=== PATIENT | female | born 1975 | race Caucasian/White ===

== ENCOUNTER 2017-07-29 06:32 | Day surgery (SDC) | payer BC ==
--- NOTE | 2017-07-24 12:35 | HP ---
AMENDED REPORT NOW INCLUDES COSIGNER DESIGNATION - ESIGNED BEFORE ADJUSTMENT PREOPERATIVE HISTORY AND PHYSICAL: DATE OF SURGERY/ADMISSION: 07/29/17 ATTENDING SURGEON: Heidy Singh MD * (DICTATED BY REYNA BOLAÑOS) PROCEDURE: Left small finger fusion, DIP joint. CHIEF COMPLAINT: Pain and stiffness, left small finger, status post mallet finger repair and subsequent infection. HISTORY OF PRESENT ILLNESS: This is a 41-year-old female who had complications following a small finger bony mallet repair. The initial injury occurred on . The patient underwent a bony mallet repair of the left small finger on 04/16/16, after which she developed an infection in the finger. An incision and drainage was performed on 04/30/16. Despite ongoing physical therapy and treatment, the patient has continued to have pain and stiffness in the finger. Recent x-rays have showed the DIP joint to be auto fusing. The PIP joint is preserved. At this point, Dr. Singh is recommending surgical intervention in the form of a left small finger fusion of the DIP joint. The patient has consented to proceed. We will place her on ciprofloxacin postoperatively for 5 days for infection prophylaxis. PAST MEDICAL HISTORY: Significant for varicose veins. PAST SURGICAL HISTORY: 1. Vein stripping 2 times each leg. 2. Oral surgery when the patient was in her 20s. 3. Left small finger bony mallet repair. 4. Incision and drainage left small finger. CURRENT MEDICATIONS: 1. Acyclovir 400 mg p.r.n. during outbreaks. 2. Ibuprofen p.r.n. 3. Diclofenac sodium 75 mg b.i.d. p.r.n. ALLERGIES: 1. ACCUTANE, results unknown. 2. CLOBETASOL causes hives and throat swelling. FAMILY MEDICAL HISTORY: Significant for cancer and heart disease. SOCIAL HISTORY: The patient is employed as a teacher at [employer]. She reports being a former smoker. She quit approximately 15 years ago. Prior to that, she smoked half a pack a day for 3 to 4 years. She denies recreational drug use. She does drink alcohol on occasion. REVIEW OF SYSTEMS: General: Negative for fevers, chills, or night sweats. No known anesthesia problems. HEENT: Positive for current congestion. Negative for headache, lightheadedness, or syncopal episodes. Integumentary: Negative for abrasions, lesions, or open wounds. Cardiothoracic: Negative for chest pain, palpitations, or edema. Negative for hypertension. Pulmonary: Negative for shortness of breath with exertion, chronic cough, COPD. GI: Negative for nausea, vomiting, diarrhea, constipation, or GERD. : Negative for nocturia, urinary frequency, urgency, history of UTIs, and kidney problems. Musculoskeletal: Positive for current complaint. Negative for chronic or intermittent back pain. Neurological: Negative for paresthesias, numbness, history of seizure, stroke, or epilepsy. Endocrine: Negative for diabetes or thyroid issues. Hematologic: Negative for easy bruising, anemia, excessive bleeding, or history of DVT. Infectious Disease: Negative for history of MRSA, hepatitis C, or HIV. PHYSICAL EXAMINATION GENERAL: Well-developed, well-nourished 41-year-old female in no acute distress. VITAL SIGNS: Height 5 feet 6 inches, weight 141 pounds. Pulse rate 74, blood pressure 124/76. HEENT: Normocephalic, atraumatic. Pupils are equal, round, and reactive to light and accommodation. Extraocular movements are intact. Throat is clear. NECK: Supple. No palpable lymph nodes. PULMONARY: Lungs are clear to auscultation bilaterally. No wheezes, rales, or rhonchi. CARDIOTHORACIC: Regular rate and rhythm. S1, S2. No murmurs, rubs, or gallops. No edema. ABDOMEN: Positive bowel sounds, soft, nontender. MUSCULOSKELETAL: On exam of her left small finger, there is atrophy of the finger and it is sensitive to palpation. She has stiffness and pain at both the DIP and the PIP joints. DIP joint motion is very limited. PIP joint is approximately 30 degrees flexion and extension. There is a deformity at the DIP joint, curving it towards the ring finger. IMAGING STUDIES: X-rays, left small finger show degenerative changes of the PIP and DIP joints. 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 PLAN: The patient is scheduled to undergo a left small finger fusion at the DIP joint with Dr. Singh on 07/29/17. She will return to the office approximately 3 days following surgery for her first postoperative visit. Prescriptions for oxycodone, ciprofloxacin and Toradol were e-scribed to the patient's pharmacy for postoperative pain management and infection prophylaxis. REYNA BOLAÑOS [id number]/[facility] #: [id number] BORIS
[~2017-07-29 06:32] MED LIST: Buffered Lidocaine 0.9% SYRIN* 5 ML/SYR SYRINGE INTRADERM ONE
[2017-07-29] MEDS ORDERED: ceFAZolin 2 GM PREMIX (*) 2 GM/50 ML BAG IVPB ONE (06:37)
[2017-07-29] MEDS ORDERED: Lidocaine 1% INJ* 10 MG/ML 30 ML SDV ONE (07:32)
[2017-07-29] MEDS ORDERED: Midazolam* 1 MG/ML 2 ML VIAL (2 MG) ONE ×2 (07:33→07:53)
[2017-07-29] MEDS ORDERED: fentaNYL* 50 MCG/ML 2 ML VIAL (100 MCG VIAL) ONE ×2 (07:33→08:24)
[2017-07-29] MEDS ORDERED: Famotidine IV* 10 MG/ML 2 ML (20 mg) ONE (07:43)
[2017-07-29] MEDS ORDERED: Bupivacaine 0.5% SDV PF* 30 ML VIAL ONE (07:58)
[2017-07-29] MEDS ORDERED: Lidocaine 2% PF * 5 ML VIAL ONE (07:59)
[2017-07-29] MEDS ORDERED: Propofol* 10 MG/ML 20 ML BTL IV PUSH ONE (07:59)
[2017-07-29] MEDS ORDERED: Dexamethasone IV* 4 MG/ML 1 ML (4 MG) ONE (07:59)
[2017-07-29] MEDS ORDERED: Ketorolac INJ* 30 MG/ML 1 ML VIAL ONE (07:59)
[2017-07-29] MEDS ORDERED: diPHENhydraMINE IV* 50 MG/ML 1 ml VIAL (BENADRYL) ONE (07:59)
[2017-07-29] MEDS ORDERED: Acetaminophen TAB* 325 MG PO PRN (08:19)
[2017-07-29] MEDS ORDERED: Ondansetron INJ* 2 MG/ML VIAL IV PRN (08:19)
[2017-07-29] MEDS ORDERED: PROCHLORPERAZINE INJ 5 MG/ML 2 ML VIAL IV PRN (08:19)
[2017-07-29] MEDS ORDERED: DiMENhydriNATE IV* 50 MG/ML VIAL IV PUSH PRN (08:19)
[2017-07-29] MEDS ORDERED: HYDROcodone/ACETAMIN 5-325 MG* 1 TAB PO PRN (08:19)
[2017-07-29] MEDS ORDERED: fentaNYL* 50 MCG/ML 2 ML VIAL (100 MCG VIAL) IV PRN (08:19)
[2017-07-29 09:19] VITALS: BP 125/75
--- NOTE | 2017-07-29 15:06 | RAD ---
INDICATION: Left fifth digit percutaneous pinning COMPARISON: June 18, 2017 FINDINGS: 48 seconds of fluoroscopy were provided for the orthopedics department. Fluoroscopic spot imaging of the left fifth digit were obtained for operative control. CPT II Codes: 6045F (fluoro time doc)
--- NOTE | 2017-07-30 21:05 | OP ---
DATE OF OPERATION: 07/29/17 [facility] DATE OF : 75 SURGEON: Heidy Singh MD DEHYDROGENATION CONVERTER OPERATOR: REYNA Morse ANESTHESIOLOGIST: Dr. Mancilla ANESTHESIA: Local MAC. PRE-OP DIAGNOSIS: Status post mallet finger repair of the left small finger with distal interphalangeal joint arthritis. POST-OP DIAGNOSIS: Status post mallet finger repair of the left small finger with distal interphalangeal joint arthritis. OPERATIVE PROCEDURE: Left little finger distal interphalangeal joint fusion. INDICATIONS: Michelle is a 41-year-old woman who suffered a mallet finger of her left small finger; this was repaired surgically, but she developed a postoperative infection and then subsequently has developed significant arthritis of the DIP joint. She presents for DIP fusion. ESTIMATED BLOOD LOSS: Zero. TOURNIQUET TIME: About 30 minutes. DESCRIPTION OF PROCEDURE: The patient was brought to the operating room, was given a sedation anesthetic and a digital block with 10 cc of 1% plain lidocaine. The skin of her left hand and forearm was prepped and draped in usual sterile fashion. The hand and forearm were exsanguinated and the tourniquet elevated to 250 mmHg. An H-shaped incision was made centered over the DIP joint of the little finger. The DIP joint was debrided of osteophytes and any remaining articular surface and then a guidewire from the Micro Acutrak set was driven down the center of the middle phalanx and then the center of the distal phalanx. The guidewire was then placed across the joint, and its position was checked on the C-arm in the AP and lateral views and found to be satisfactory. We measured for an 18-mm Micro Acutrak screw and drilled the distal cortex of the distal phalanx. The screw was then placed across the joint , its position was checked on the C-arm in the AP and lateral views and found to be well positioned. The wound was irrigated and the skin edges were reapproximated with 4-0 nylon suture. The wound was dressed with Xeroform, 4x4 , Webril, and an Hipolito wrap. The patient tolerated the procedure well and was brought to the recovery room in good condition. [id number]/[facility] #: [id number] [facility]
== END 2017-07-29 09:35 | disposition home or self-care (01) ==
LOC: OREAST 06:32
PROVIDERS: ATTEND Orthopaedic Surgery
DX: M15.1 Heberden's nodes (with arthropathy) (principal); Z87.891 Personal history of nicotine dependence
CPT/HCPCS: 76000; 81025; C1713; C1776; J0690; J1100; J1200; J1885; J2250; J2704; J3010

== ENCOUNTER → 2019-05-06 11:17 | Day surgery (SDC) | payer BC ==
[~2019-05-06 11:17] MED LIST changes: -Buffered Lidocaine 0.9% SYRIN* 5 ML/SYR SYRINGE INTRADERM ONE; +Flumazenil* 0.1 MG/ML 5 ML MDV ONE; +Heparin 2 UNITS/ML IVPREMIX* 2,000 ML IV ONE; +Iohexol 350 (CONTRAST) 200 ML MDV IV ONE; +Ketorolac INJ* 30 MG/ML 1 ML VIAL ONE; +LORazepam TAB(*) 1 MG ONE; +Lidocaine 1% INJ* 10 MG/ML 30 ML SDV ONE; +Midazolam* 1 MG/ML 5 ML VIAL (5 MG) ONE; +Naloxone* 0.4 MG/ML 1 ML VIAL ONE; +Ondansetron INJ* 2 MG/ML VIAL IV ONE; +Ondansetron INJ* 2 MG/ML VIAL ONE; +Polidocanol 1% 20 MG/2 ML AMP IV ONE; +fentaNYL* 50 MCG/ML 5 ML VIAL (250 MCG VIAL) ONE
[2019-05-06 12:32] LABS: HCG Pregnancy < 0.60 mIU/mL
[2019-05-06 13:22] LABS: Anion Gap 8 mmol/L (2-11); BUN/Creatinine Ratio 17.6 (8-20); Blood Urea Nitrogen 15 mg/dL (6-24); CO2 Carbon Dioxide 25 mmol/L (22-32); Calcium 9.4 mg/dL (8.6-10.3); Chloride 105 mmol/L (101-111); EGFR African American 88.3 (>60); Glucose 85 mg/dL (70-100); Potassium 3.9 mmol/L (3.5-5.0); Sodium 138 mmol/L (135-145)
--- NOTE | 2019-05-06 16:22 | PN ---
Progress Note - Progress Note Date of Service: 05/06/19 SOAP: Subjective: Denies pain in the pelvis or elsewhere. Denies chest pain or SOB. +Nausea/emesis treated with Zofran. Objective: Selected Entries 05/06/19 16:04 Pulse Rate 68 Heart Rate 75 Respiratory 17 Rate Blood Pressure 112/71 (mmHg) Blood Pressure 85 Mean O2 Sat by Pulse 98 Oximetry NAD, AAO X 3 RRR, CTAB Right IJ venotomy is soft, nontender. Dressing is CDI. Abdomen and pelvis are soft and nontender to palpation. Assessment: 43 YOF status post pelvic venography, foam sclerosant embolization of left perituterine varicose veins and coil embolization of the refluxing left ovarian vein. Episode of nausea/emesis has been controlled with Zofran 4 mg IV. Plan: 1. Anticipate DC to home as planned. 2. IR clinic will follow up with RN calls tomorrow and in one week. 3. IR clinic visit will be scheduled in 1 month.
[2019-05-06 17:15] VITALS: BP 109/74
== END | disposition home or self-care (01) ==
LOC: CHICATH 11:17
PROVIDERS: ATTEND Radiology Diagnostic Radiology
DX: I86.2 Pelvic varices (principal); R10.2 Pelvic and perineal pain; I83.813 Varicose veins of bilateral lower extremities with pain
CPT/HCPCS: 36415; 37241; 76937; 80048; 84702; 99156; 99157; A9270-GY; C1769; C1884; C1887; C1894; J1644; J1885; J2250; J2310; J2405; J3010